=== PATIENT | male | born 1960 | race Asian ===

== ENCOUNTER → 2017-05-30 | Outpatient (CLI) | payer OTHER | END | disposition home or self-care (01) | LOC: CFH 16:39 | PROVIDERS: ATTEND Urology | DX: N20.0 Calculus of kidney (principal) | CPT/HCPCS: 74000 ==

== ENCOUNTER → 2017-06-08 | Outpatient (CLI) | payer OTHER | LOC: EDSEX → CFH 14:51 | PROVIDERS: ATTEND Urology | DX: N20.0 Calculus of kidney (principal); I71.4 Abdominal aortic aneurysm, without rupture; M47.816 Spondylosis without myelopathy or radiculopathy, lumbar region | CPT/HCPCS: 74176 ==